=== PATIENT | female | born 1955 | race Two or more races ===

== ENCOUNTER → 2018-08-17 06:00 | Outpatient (CLI) | payer OTHER ==
[~2018-08-17 06:00] MED LIST: DICYCLOMINE HCL20 MG PO; INTESTINEX680 M1 PO; NEURONTIN300 MG PO; SYNTHROID75 MCG PO
== END | disposition home or self-care (01) ==
LOC: LAB 06:00 → ADM 12:15 → EDSTATUS 08-24 12:15 → CIR.AMB 08-24 12:15
DX: D64.89 Other specified anemias (principal); D78.89 Other postprocedural complications of the spleen; D03.8 Melanoma in situ of other sites; I10 Essential (primary) hypertension; R07.89 Other chest pain; N39.0 Urinary tract infection, site not specified